=== PATIENT | male | born 1990 | race Caucasian/White ===

== ENCOUNTER 2023-02-16 21:58 | Emergency (ER) | payer MEDICAID, SELFPAY ==
[2023-02-16 22:00] VITALS: BP 136/84; PULSE 90; RESP 16; TEMP 36.8; O2SAT 100; BMI 34.7
--- NOTE | 2023-02-16 22:10 | PC.NURSE ---
patient states he has cut to left hand and then refers to to complete triage. states approx 20mins ago patient was helping move scrap metal out of a trailer when a piece sliced his left palm below fifth finger. patient states he does not want stitches and wants it glued because he is scared of hospitals and needles . patient states he has never had a tetanus shot before and states i dont want one, that isn't happening either . no active bleeding at this time, hand placed in hibaclens soak.
--- NOTE | 2023-02-16 22:16 | ED_ITS ---
HPI - Wound/Laceration General Chief Complaint: Wound/Laceration Stated Complaint: LACERATION Time Seen by Provider: 02/16/23 22:12 History of Present Illness HPI narrative: working on a motor cycle and cut his left hand. Injury just [employer]. denies numbness or weakness of his fingers. Not sure when last tetanus but does not want a tetanus shot. States he also does not want the laceration repair and prefers to have glue Onset (ago): minute(s) Related Data Allergies Allergy/AdvReac Type Severity Reaction Status Date / Time No Known Drug Allergies Allergy Verified 02/16/23 22:05 Review of Systems ROS Status of ROS 10 or more systems reviewed and unremarkable except as noted in history and below Exam Constitutional Vital Signs, click to edit/add: Last Vital Signs Temp 98.2 F 02/16/23 22:00 Pulse 90 02/16/23 22:00 Resp 16 02/16/23 22:00 BP 136/84 H 02/16/23 22:00 Pulse Ox 100 02/16/23 22:00 O2 Del Method Room Air 02/16/23 22:00 Common normals: no apparent distress, oriented x3, no limitations and healthy appearing HENMT Common normals: normocephalic and head/scalp atraumatic Eye Common normals: EOMs intact bilaterally and conjunctivae normal Respiratory Common normals: normal respiratory effort, no retractions and no use of accessory muscles Cardio Common normals: regular rhythm, S1 normal heart sound and S2 normal heart sound Extremity Other: palmar lac left hand btw 4th and 5th fingers near web space. lac about 1.2cm. SQ exposed. No obvious FB. FROM of his fingers. Neuro Common normals: oriented x3, CN's II-XII intact bilaterally, moves all extremities and no focal motor deficits Psych Appearance: grossly normal Course Vital Signs Vital signs: Vital Signs Temperature 98.2 F 02/16/23 22:00 Pulse Rate 90 02/16/23 22:00 Respiratory Rate 16 02/16/23 22:00 Blood Pressure 136/84 H 02/16/23 22:00 Pulse Oximetry 100 02/16/23 22:00 Oxygen Delivery Method Room Air 02/16/23 22:00 Temperature 98.2 F 02/16/23 22:00 Pulse Rate 90 02/16/23 22:00 Respiratory Rate 16 02/16/23 22:00 Blood Pressure 136/84 H 02/16/23 22:00 Pulse Oximetry 100 02/16/23 22:00 Oxygen Delivery Method Room Air 02/16/23 22:00 MDM - Wound/Laceration MDM Narrative Medical decision making narrative: presents with a laceration of the palm of his left hand. patient informed that we normally would repair this laceration with stitches and not glue but he is adamant he does not want stitches. Informed the wound may open due to its location. he is currently soaking his hand at this time will anticipate repair with glue Discharge Plan Discharge Chief Complaint: Wound/Laceration Clinical Impression: Laceration of hand Patient Disposition: Home, Self-Care Instructions: Laceration (ED) Additional Instructions: have wound rechecked next week Stand Alone Forms: Portal Instructions Referrals: Physician,Non-Staff, MD [Primary Care Provider] - 1 week Procedures ED Procedure Instructions Procedures Procedures: lac left hand. site cleaned and then dermabond used to close the wound. tolerated well.
== END 2023-02-16 23:05 | disposition home or self-care (01) ==
PROVIDERS: Emergency Provider Internal Medicine
DX: S61.412A Laceration without foreign body of left hand, initial encounter (principal); W26.9XXA Contact with unspecified sharp object(s), initial encounter
CPT/HCPCS: 12001; 99283

== ENCOUNTER 2023-04-20 18:45 | Emergency (ER) | payer MEDICAID, SELFPAY ==
[2023-04-20 18:48] VITALS: BP 135/81; PULSE 70; RESP 16; TEMP 36.7; O2SAT 98; BMI 34.1
--- NOTE | 2023-04-20 18:57 | ED.SKABFB1 ---
HPI - Skin/Abscess/Foreign Bdy General Chief complaint: Skin/Abscess/Foreign Body Stated complaint: LACERATION Time Seen by Provider: 04/20/23 18:49 Source: patient Mode of arrival: walk-in History of Present Illness HPI narrative: patient is a 32-year-old male presents the emergency department for the evaluation of a laceration to the right 3rd finger. He states he cut himself on a knife approximately seven hours ago but is afraid of needles so he refused to come to the Emergency Room. His has been managing at home with bandages but he continues to have bleeding to the area. Unknown last tetanus, patient is adamant that he will not get a tetanus shot. He had no other associated injuries. Related Data Home Medications Medication Instructions Recorded Confirmed aripiprazole 2 mg tablet 2 mg PO DAILY 04/20/23 04/20/23 meloxicam 15 mg tablet 15 mg PO DAILY 04/20/23 04/20/23 sertraline 50 mg tablet 50 mg PO DAILY 04/20/23 04/20/23 Previous Rx's Medication Instructions Recorded naproxen sodium 550 mg tablet 550 mg PO BID PRN pain #10 tabs 04/20/23 Allergies Allergy/AdvReac Type Severity Reaction Status Date / Time No Known Drug Allergies Allergy Verified 02/16/23 22:05 Review of Systems ROS Constitutional Denies: fever or chills Ears, nose, mouth, and throat Denies: throat pain Cardiovascular Denies: chest pain Respiratory Denies: shortness of breath or cough Gastrointestinal Denies: nausea or vomiting Musculoskeletal Denies: back pain Integumentary/Breast Denies: rash Hematologic/Lymphatic Denies: easy bruising Allergic/Immunologic Denies: hives Exam Narrative Exam Narrative: Gen.: Awake, alert, in no distress Head: Normocephalic, atraumatic ENT: Moist mucous membranes Respiratory: No respiratory distress Extremities: Moves extremities equally, 2.5 cm superficial laceration to the right 3rd finger adjacent to the PIP joint. No laceration over the joint. No tendon visualization. no deficit in strength to flexion and extension at the DIP and PIP joints. Psych: Normal mood and affect Neuro: No focal neuro deficit Skin: Warm, dry Constitutional Vital Signs, click to edit/add: Last Vital Signs Temp 98.0 F 04/20/23 18:48 Pulse 70 04/20/23 18:48 Resp 16 04/20/23 18:48 BP 135/81 04/20/23 18:48 Pulse Ox 98 04/20/23 18:48 O2 Del Method Room Air 04/20/23 18:48 Course Vital Signs Vital signs: Vital Signs Temperature 98.0 F 04/20/23 18:48 Pulse Rate 70 04/20/23 18:48 Respiratory Rate 16 04/20/23 18:48 Blood Pressure 135/81 04/20/23 18:48 Pulse Oximetry 98 04/20/23 18:48 Oxygen Delivery Method Room Air 04/20/23 18:48 Temperature 98.0 F 04/20/23 18:48 Pulse Rate 70 04/20/23 18:48 Respiratory Rate 16 04/20/23 18:48 Blood Pressure 135/81 04/20/23 18:48 Pulse Oximetry 98 04/20/23 18:48 Oxygen Delivery Method Room Air 04/20/23 18:48 MDM - Skin/Abscess/Foreign Bdy MDM Narrative Medical decision making narrative: patient is adamant that he does not want a tetanus shot, but he is agreeable to suture repair. Please see procedure note for details. Sutures placed without difficulty. Follow-up for suture removal in 7-10 days. Laceration repair: Done under sterile conditions. The use of Shur-Clens prep the area. Local injection with lidocaine 1% was used, approximately 5 cc. The wound was irrigated copiously with normal saline. The wound was explored there was no evidence of foreign material. The laceration was approximated with 4-0 nylon. 5 simple interrupted sutures were placed. Patient tolerated the procedure well. The patient was neurovascularly intact post. the patient had bacitracin applied to the laceration and a dry sterile dressing was placed with finger splint. The patient will need to follow-up in the next 7-10 days for removal Medical Records Attestation: I reviewed the patient's medical records. Discharge Plan Discharge Chief Complaint: Skin/Abscess/Foreign Body Clinical Impression: Finger laceration Patient Disposition: Home, Self-Care Time of Disposition Decision: 19:22 Condition: Good Prescriptions / Home Meds: New naproxen sodium 550 mg tablet 550 mg PO BID PRN (Reason: pain) Qty: 10 0RF No Action aripiprazole 2 mg tablet 2 mg PO DAILY meloxicam 15 mg tablet 15 mg PO DAILY sertraline 50 mg tablet 50 mg PO DAILY Instructions: Finger Laceration (ED) Stand Alone Forms: Portal Instructions Referrals: Physician,Non-Staff, MD [Primary Care Provider] - 1 week
--- NOTE | 2023-04-20 19:03 | PC.NURSE ---
ALFREDO Blankenship at bedside placing sutures
[2023-04-20] MEDS: BACITRACIN 0.9 GM PACKET 1 PACKET TOPICAL (19:06)
[2023-04-20] MEDS: LIDOCAINE HCL 1% 100 MG/10 ML MDV INJ (19:07)
== END 2023-04-20 19:29 | disposition home or self-care (01) ==
PROVIDERS: Emergency Provider Emergency Medicine
DX: S61.212A Laceration without foreign body of right middle finger without damage to nail, initial encounter (principal); W26.0XXA Contact with knife, initial encounter; Z79.899 Other long term (current) drug therapy
CPT/HCPCS: 12001; 99282